=== PATIENT | male | born 1960 | race Caucasian/White ===

== ENCOUNTER 2017-04-02 12:41 | Emergency (ER) | payer OTHER ==
[~2017-04-02] VITALS: Ht 182.9 cm; Wt 127.0 kg
[~2017-04-02 12:41] MED LIST: BACTRIM DS TAB1 EACH PO; HYDROXYZINE HCL25 M2 PO; KEFLEX500 M1 PO; NORCO 325 MG-51 TAB PO; PERCOCET 5-3251 EACH PO; PREDNISONE20 M1 PO; PYRIDIUM100 M1 PO; ZOFRAN ODT4 M1 SL
[2017-04-02 12:46] VITALS: BP 134/79
== END 2017-04-02 13:49 | disposition admitted as inpatient to this hospital (09) ==
LOC: ERH 12:41
DX: R10.9 Unspecified abdominal pain (principal)

== ENCOUNTER 2017-09-09 18:50 | Emergency (ER) | payer OTHER ==
[~2017-09-09] VITALS: Ht 182.9 cm; Wt 131.5 kg
[2017-09-09 19:32] LABS: ABSOLUTE BASOPHIL COUNT 0.1 /CUMM (0.0-0.2); ABSOLUTE EOSINOPHIL COUNT 0.2 /CUMM (0.0-0.7); ABSOLUTE LYMPH COUNT 2.3 /CUMM (1.2-3.4); ABSOLUTE MONOCYTE COUNT 0.8 /CUMM (0.10-0.60); BASOPHIL % 0.6 % (0.0-2.0); EOSINOPHIL % 2.3 % (0-5); GRANULOCYTE % 67.2 % (42.2-75.2); MEAN CORPUSCULAR HGB 30.5 PG (27.0-31.0); MEAN CORPUSCULAR HGB CONC 33.8 G/DL (33.0-37.0); MEAN CORPUSCULAR VOLUME 90.1 FL (80.0-94.0); MEAN PLATELET VOLUME 8.1 FL (7.4-10.4); PLATELET COUNT 277 /CUMM (130-400); RBC DISTRIBUTION WIDTH 13.1 % (11.5-14.5); RED BLOOD CELL CT 5.44 /CUMM (4.70-6.10); WHITE BLOOD CELL COUNT 10.5 /CUMM (4.8-10.8)
--- NOTE | 2017-09-09 20:03 | RADIOLOGY REPORT ---
EXAMINATION: XR CHEST CLINICAL INFORMATION: Chest pain COMPARISON: Chest x-rays of 07/21/2012 TECHNIQUE: 2 views of the chest were obtained. FINDINGS: The cardiomediastinal silhouette is within normal limits. Lungs are normally and symmetrically expanded. The lungs are clear. Pulmonary vascularity appears normal. No pleural effusions or pneumothorax. Degenerative changes are noted in the mid and lower thoracic spine. IMPRESSION: No radiographic evidence of pneumonia or congestive heart failure. No acute pulmonary process. The lungs essentially appear clear.
[2017-09-09 23:05] VITALS: BP 132/72
--- NOTE | 2017-09-09 23:16 | ED GENERAL ADULT ---
History of Present Illness General Chief Complaint: General Adult Stated Complaint: ABNORMAL EKG FROM WALK-IN, L SHOULDER PAIN [id number] Source: patient Exam Limitations: no limitations Vital Signs & Intake/Output Vital Signs & Intake/Output Vital Signs Date Time Temp Pulse Resp B/P B/P Pulse O2 O2 Flow FiO2 Mean Ox Delivery Rate 09/09 1857 97.6 84 16 133/74 98 Room Air Allergies Coded Allergies: NO KNOWN ALLERGIES (10/24/13) Reconcile Medications Acetaminophen/Hydrocodone Bi (Miranda 325 MG-5 MG) 1 TAB TAB 1 TAB PO Q6H PRN PAIN Cephalexin (Keflex) 500 MG CAPSULE 1 CAP PO 4 TIMES/DAY cellulitis/infection Cephalexin (Keflex) 500 MG CAPSULE 1 CAP PO TID bug bite cellulits Cephalexin (Keflex) 500 MG CAPSULE 1 CAP PO TID CELLUILTIS Hydroxyzine Hydrochloride (Atarax) 25 MG TABLET 1-2 TAB PO Q6P PRN local reaction Ondansetron (Zofran Odt) 4 MG TAB.RAPDIS 1 TAB SL TID PRN nausea Oxycodone HCl/Acetaminophen (Percocet 5-325 MG Tablet) 1 EACH TABLET 1 TAB PO TID PRN BREAKTHROUGH PAIN Phenazopyridine HCl (Pyridium) 100 MG TABLET 1 TAB PO TID pain Prednisone 20 MG TABLET 1 TAB PO BID local reaction Sulfamethoxazole/Trimethoprim (Bactrim Ds Tablet) 1 EACH TABLET 1 TAB PO BID cellulitis/infection Sulfamethoxazole/Trimethoprim (Bactrim Ds Tablet) 800 MG-160 MG TABLET 1 TAB PO BID uti Triage Note: 57 Y/O WALK IN AND WAS REFERRED TO ED FOR "ABNORMAL EKG" (COPY IN CHART). PT DENIES C/P. DENIES SOB. TAKEN TO EKG/BLOODWORK Triage Nurses Notes Reviewed? yes Onset: Gradual Duration: week(s):, waxing and waning Timing: recent history Injury Environment: home Severity: mild, moderate Modifying Factors: Improves With: rest. Worsens With: movement. Associated Symptoms: LEFT SHOULDER PAIN HPI: 57 YO GENTLEMAN presents with left shoulder pain x 1 month, presented to urgent care, and was referred here for cardiac evaluation. 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 He notes pain in his left shoulder when he moves it. He has no chest pain, shortness of breath, dyspnea, diaphoresis. He is otherwise well. Past History Travel History Traveled to [place] past 21 day No Medical History Any Pertinent Medical History? see below for history Neurological: NONE EENT: NONE Cardiovascular: hypertension Respiratory: NONE Gastrointestinal: NONE Hepatic: NONE Renal: NONE Musculoskeletal: NONE Psychiatric: NONE Endocrine: NONE Blood Disorders: NONE Cancer(s): NONE CUSTOMER LOGISTICS MANAGER/Reproductive: NONE Other Medical Hx: Cellulitis Surgical History Surgical History: non-contributory Psychosocial History Who do you live with Friend What is your primary language Romanian Tobacco Use: Current Daily Use Daily Tobacco Use Amount/Type: => 5 Cigarettes daily Family History Hx Contributory? No Review of Systems Review of Systems Constitutional: Reports: no symptoms. EENTM: Reports: no symptoms. Respiratory: Reports: no symptoms. Cardiovascular: Reports: no symptoms. GI: Reports: no symptoms. Genitourinary: Reports: no symptoms. Musculoskeletal: Reports: no symptoms. Skin: Reports: no symptoms. Neurological/Psychological: Reports: no symptoms. Hematologic/Endocrine: Reports: no symptoms. Immunologic/Allergic: Reports: no symptoms. All Other Systems: Reviewed and Negative Physical Exam Physical Exam General Appearance: well developed/nourished, no apparent distress Head: atraumatic, normal appearance Eyes: Bilateral: normal appearance. Ears, Nose, Throat: normal pharynx, normal ENT inspection, hearing grossly normal Neck: normal inspection, supple, full range of motion Respiratory: normal breath sounds, chest non-tender, no respiratory distress, quiet respiration, lungs clear Cardiovascular: regular rate/rhythm Gastrointestinal: normal bowel sounds, soft, non-tender Back: normal inspection Extremities: left shoulder with tenderness around shoulder musculature, pain elicited with rotation and rotator cuff maneuvers. Neurologic/Psych: no motor/sensory deficits, awake, alert, oriented x 3 Skin: intact, normal color, warm/dry Core Measures ACS in differential dx? No CVA/TIA Diagnosis: No Sepsis Present: No Sepsis Focused Exam Completed? No Progress Differential Diagnoses I considered the following diagnoses in my evaluation of the patient: rotator cuff tendonitis vs other. Plan of Care: Orders Procedure Date/time Status TROPONIN LEVEL 09/09 2214 Complete EKG 09/09 2214 Active TROPONIN LEVEL 09/09 1850 Complete COMPREHENSIVE METABOLIC PANEL 09/09 1850 Complete CBC WITHOUT DIFFERENTIAL 09/09 1850 Complete EKG 09/09 1850 Active Laboratory Tests 09/09/17 2226: Troponin I 0.01 09/09/171919: Anion Gap 12, Estimated GFR 57 L, BUN/Creatinine Ratio 22.3, Glucose 78, Calcium 9.5, Total Bilirubin 0.6, AST 27, ALT 41, Alkaline Phosphatase 68, Troponin I 0.02, Total Protein 7.3, Albumin 4.1, Globulin 3.2, Albumin/Globulin Ratio 1.3, CBC w Diff NO MAN DIFF REQ, RBC 5.44, MCV 90.1, MCH 30.5, MCHC 33.8, RDW 13.1, MPV 8.1, Gran % 67.2, Lymphocytes % 22.3, Monocytes % 7.6, Eosinophils % 2.3, Basophils % 0.6, Absolute Granulocytes 7.0 H, Absolute Lymphocytes 2.3, Absolute Monocytes 0.8 H, Absolute Eosinophils 0.2, Absolute Basophils 0.1 CXR Impression: PATIENT: MEGAN AVALOS PRESENT AGE: 57 PATIENT ACCOUNT NO: [id number] : 61 LOCATION: [facility] ORDERING PHYSICIAN: Abhijit MEEHAN SERVICE DATE: 09/09/17 EXAM TYPE: RAD - XRY-CHEST XRAY, TWO VIEWS EXAMINATION: XR CHEST CLINICAL INFORMATION: Chest pain COMPARISON: Chest x-rays of 07/21/2012 TECHNIQUE: 2 views of the chest were obtained. FINDINGS: The cardiomediastinal silhouette is within normal limits. Lungs are normally and symmetrically expanded. The lungs are clear. Pulmonary vascularity appears normal. No pleural effusions or pneumothorax. Degenerative changes are noted in the mid and lower thoracic spine. IMPRESSION: No radiographic evidence of pneumonia or congestive heart failure. No acute pulmonary process. The lungs essentially appear clear. DICTATED BY: Stephanie Alexandre MD DATE/TIME DICTATED:1954 DECK MATE:LEROY DATE/TIME TRANSCRIBED:09/09/171954 CONFIDENTIAL, DO NOT COPY WITHOUT APPROPRIATE AUTHORIZATION. <Electronically signed in Other Vendor System> SIGNED BY: Stephanie Alexandre MD 09/09/172002 Initial ED EKG: SINUS, NO ACUTE CHANGES... Repeat EKG: unchanged Departure Departure Disposition: HOME OR SELF CARE Condition: Stable Clinical Impression Primary Impression: Rotator cuff tendonitis Referrals: Collin AVILA,Demetri Sterling (PCP/Family) Departure Forms: Customer Survey General Discharge Information Critical Care Note Critical Care Note Critical Care Time: non-applicable
== END 2017-09-09 23:42 ==
LOC: ERH 18:50
PROVIDERS: Physician Assistant Medical
DX: M75.82 Other shoulder lesions, left shoulder (principal)
CPT/HCPCS: 71046; 93005; 93010